=== PATIENT | male | born 1970 | race Hispanic/Latino ===

== ENCOUNTER 2022-02-13 18:23 | Emergency (ER) | payer BC ==
[~2022-02-13] VITALS: Ht 172.7 cm; Wt 95.4 kg
[2022-02-13 18:31] VITALS: BP 172/107
[2022-02-13 19:00] VITALS: BP 156/99
[2022-02-13 19:31] VITALS: BP 160/103
[2022-02-13] MEDS ORDERED: AMOXICILLIN500 MG PO (19:50)
== END 2022-02-13 20:14 | disposition home or self-care (01) | DRG 605 ==
LOC: ED 18:23
PROC: 0HQGXZZ Repair Left Hand Skin, External Approach (ICD-10-PCS; principal; 2022-02-13)
DX: S61.213A Laceration without foreign body of left middle finger without damage to nail, initial encounter (principal); W31.89XA Contact with other specified machinery, initial encounter; Y93.89 Activity, other specified; Y92.009 Unspecified place in unspecified non-institutional (private) residence as the place of occurrence of the external cause

== ENCOUNTER 2022-02-14 19:18 | Emergency (ER) | payer BC ==
[2022-02-14] VITALS (17 sets, daily range): BP systolic 142–179; BP diastolic 90–111
[~2022-02-14] VITALS: Ht 172.7 cm; Wt 95.2 kg
[~2022-02-14 19:18] MED LIST: AMOXICILLIN500 MG PO
== END 2022-02-14 22:51 | disposition home or self-care (01) | DRG 951 ==
LOC: ED 19:18
DX: Z48.00 Encounter for change or removal of nonsurgical wound dressing (principal)